=== PATIENT | female | born 1960 | race Caucasian/White ===

== ENCOUNTER 2025-08-23 06:20 | Day surgery (SDC) | payer BC, SELFPAY | END 2025-08-23 15:10 | disposition home or self-care (01) | LOC: GI 06:20 | PROVIDERS: ATTENDING PHYSICIAN Internal Medicine Gastroenterology | DX: K62.5 Hemorrhage of anus and rectum (principal); R19.4 Change in bowel habit; K57.30 Diverticulosis of large intestine without perforation or abscess without bleeding; K64.9 Unspecified hemorrhoids; D12.0 Benign neoplasm of cecum | CPT/HCPCS: 45385; 45381; 88305 ==